=== PATIENT | female | born 1990 | race African-American/Black ===

== ENCOUNTER 2018-03-17 11:33 | Outpatient (CLI) | payer OTHER ==
--- NOTE | 2018-03-17 12:27 | RAD ---
LEFT SHOULDER THREE VIEWS: 03/17/2018 HISTORY: Left shoulder pain with movement. COMPARISON: None. FINDINGS: There is no widening of the acromioclavicular or coracoclavicular interspace. There is no displaced fracture or evidence of dislocation. 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 No acute fracture or dislocation seen. POS: [facility]
== END 2018-03-17 11:34 | disposition home or self-care (01) ==
LOC: NAV RAD 11:33
PROVIDERS: ATTEND Nurse Practitioner Family
DX: M25.512 Pain in left shoulder (principal); Q79.8 Other congenital malformations of musculoskeletal system

== ENCOUNTER 2019-09-05 19:51 | Emergency (ER) | payer OTHER | END 2019-09-05 20:16 | disposition home or self-care (01) | LOC: NAV ERS 19:51 | DX: M25.532 Pain in left wrist (principal); F17.210 Nicotine dependence, cigarettes, uncomplicated | CPT/HCPCS: 99281 ==

== ENCOUNTER 2019-09-28 08:57 | Emergency (ER) | payer OTHER, SELFPAY | END 2019-09-28 09:46 | disposition home or self-care (01) | LOC: NAV ERS 08:57 | DX: L23.2 Allergic contact dermatitis due to cosmetics (principal); E66.9 Obesity, unspecified; F17.210 Nicotine dependence, cigarettes, uncomplicated; Z79.899 Other long term (current) drug therapy | CPT/HCPCS: 99282 ==

== ENCOUNTER 2021-06-08 00:07 | Emergency (ER) | payer OTHER, SELFPAY ==
[2021-06-08] MEDS ORDERED: Acetaminophen/Codeine 30-300mg Tablet ONE (00:21)
[2021-06-08] MEDS ORDERED: Amoxicillin/Potassium Clav 875 MG TAB ONE (00:22)
== END 2021-06-08 00:35 | disposition home or self-care (01) ==
LOC: NAV ERS 00:07
DX: K03.81 Cracked tooth (principal); F17.210 Nicotine dependence, cigarettes, uncomplicated
CPT/HCPCS: 99282

== ENCOUNTER 2021-09-13 23:31 | Emergency (ER) | payer OTHER | END 2021-09-13 23:55 | disposition home or self-care (01) | LOC: NAV ERS 23:31 | DX: T19.2XXA Foreign body in vulva and vagina, initial encounter (principal); F17.210 Nicotine dependence, cigarettes, uncomplicated | CPT/HCPCS: 99283 ==

== ENCOUNTER 2023-07-04 15:32 | Emergency (ER) | payer OTHER ==
[2023-07-04] MEDS ORDERED: Bacitracin 1 PK ONE (16:38)
== END 2023-07-04 16:49 | disposition home or self-care (01) ==
LOC: NAV ERS 15:32
DX: S80.812D Abrasion, left lower leg, subsequent encounter (principal); I89.0 Lymphedema, not elsewhere classified; F17.210 Nicotine dependence, cigarettes, uncomplicated; E66.9 Obesity, unspecified; W26.8XXD Contact with other sharp object(s), not elsewhere classified, subsequent encounter
CPT/HCPCS: 99282

== ENCOUNTER 2023-11-15 05:15 | Emergency (ER) | payer OTHER ==
[2023-11-15] MEDS ORDERED: Cephalexin 250 MG CAP ONE (05:48)
[2023-11-15] MEDS ORDERED: Naproxen 500 MG TAB ONE (05:48)
== END 2023-11-15 05:55 | disposition home or self-care (01) ==
LOC: NAV ERS 05:15
DX: K04.7 Periapical abscess without sinus (principal); F17.210 Nicotine dependence, cigarettes, uncomplicated
CPT/HCPCS: 99282

== ENCOUNTER 2024-03-15 16:46 | Emergency (ER) | payer MEDICAID | END 2024-03-15 17:18 | disposition home or self-care (01) | LOC: NAV ERS 16:46 | DX: T19.2XXA Foreign body in vulva and vagina, initial encounter (principal); F17.210 Nicotine dependence, cigarettes, uncomplicated; Z55.6 Problems related to health literacy | CPT/HCPCS: 99283 ==